=== PATIENT | male | born 1930 | race Caucasian/White ===

== ENCOUNTER 2016-12-31 22:08 | Inpatient (IN) | payer MEDICARE ==
[~2016-12-31] VITALS: Ht 180.3 cm; Wt 98.2 kg
[2016-12-31] MEDS ORDERED: ONDANSETRON 2MG/ML, 2ML ONE (22:51)
[2016-12-31] MEDS ORDERED: ONDANSETRON 2MG/ML, 2ML IVPush ONE (23:00)
[2016-12-31] MEDS ORDERED: SODIUM CHLORIDE 0.9% 1,000ML IVBOLUS ONE (23:00)
[2016-12-31 23:11] LABS: HEMATOCRIT 45.7 % (39.2-51.8); HEMOGLOBIN 15.7 g/dL (13.7-18.0)
[2016-12-31 23:22] LABS: ASPARTATE AMINO TRANSFERASE 45 U/L (15-37); BLOOD UREA NITROGEN 24 mg/dL (7-18)
[2016-12-31 23:33] LABS: IS PT STATUS REG ER OR PRE ER? YES
[2017-01-01] MEDS ORDERED: ASPIRIN 81 MG TABLET CHEW PO ONE
[2017-01-01] MEDS ORDERED: NITROGLYCERIN 0.4 MG/SPRAY SL PRN (00:30)
[2017-01-01] MEDS ORDERED: HYDROmorphone 2 MG/ML, 1ML IVPush PRN (00:30)
[2017-01-01] MEDS ORDERED: ACETAMINOPHEN 325 MG TABLET PO PRN (00:30)
[2017-01-01] MEDS ORDERED: hydrALAzine 20 MG/ML, 1ML IVPush PRN (00:30)
[2017-01-01] MEDS ORDERED: ASPIRIN 325 MG TABLET EC PO ONE (00:30)
[2017-01-01] MEDS ORDERED: MORPHINE SULFATE 4 MG/ML, 1ML IVPush PRN (00:30)
[2017-01-01] MEDS ORDERED: Enoxaparin 1 mg/kg protocol SQ SCH (00:30)
[2017-01-01] MEDS ORDERED: ONDANSETRON 2MG/ML, 2ML IVPush PRN ×2 (00:30)
[2017-01-01] MEDS ORDERED: NITROGLYCERIN 0.4 MG BOTTLE (25 TABS) SL PRN (00:30)
[2017-01-01] MEDS ORDERED: ASPIRIN 81 MG TABLET CHEW ONE (00:48)
[2017-01-01] MEDS ORDERED: ENOXAPARIN 100 MG/ML SQ ONE (01:00)
[2017-01-01 01:14] LABS: IS PT STATUS REG ER OR PRE ER? YES
[2017-01-01 01:55] VITALS: BP 105/57
[2017-01-01] MEDS ORDERED: HEPARIN 25,000 UNITS/500ML PMX 500 ML IV PRN ×2 (02:30→03:00)
[2017-01-01] MEDS ORDERED: HEPARIN 5,000 UNITS/ML, 1ML IV ONE (03:00)
[2017-01-01] MEDS ORDERED: HEPARIN 5,000 UNITS/ML, 1ML IV PRN (03:00)
[2017-01-01 03:40] LABS: IS PT STATUS REG ER OR PRE ER? NO
[2017-01-01] MEDS: INSULIN ASPART 100 UNITS/ML, PEN SQ-INSULIN SCH ×4 (07:00→20:36)
[2017-01-01 08:39] VITALS: BP 132/57
[2017-01-01] MEDS: METOPROLOL TARTRATE 25 MG TABLET PO SCH ×2 (09:00→18:00)
[2017-01-01] MEDS: FAMOTIDINE 20 MG/2 ML IVPush SCH ×2 (09:00→20:36)
[2017-01-01] MEDS: SODIUM CHLORIDE FLUSH 10ML SYR IVF SCH ×4 (09:00→20:37)
[2017-01-01 09:48] LABS: IS PT STATUS REG ER OR PRE ER? NO
[2017-01-01 13:20] VITALS: BP 131/69
[2017-01-01] MEDS ORDERED: LIDOCAINE 2%, 20ML ONE (14:27)
[2017-01-01] MEDS ORDERED: HEPARIN 1,000 UNITS/ML, 10ML ONE (14:27)
[2017-01-01] MEDS ORDERED: BIVALIRUDIN 250 MG ONE (14:27)
[2017-01-01] MEDS ORDERED: FENTANYL PF 100 MCG/2ML ONE (14:27)
[2017-01-01] MEDS ORDERED: MIDAZOLAM 1 MG/ML, 5ML ONE (14:27)
[2017-01-01] MEDS ORDERED: VERAPAMIL 2.5 MG/ML, 2ML ONE (14:27)
[2017-01-01] MEDS ORDERED: TICAGRELOR 90 MG TABLET ONE (14:27)
[2017-01-01] MEDS ORDERED: NITROGLYCERIN 5 MG/ML, 10ML ONE (15:04)
[2017-01-01 20:00] VITALS: BP 125/70
[2017-01-01] MEDS: ATORVASTATIN 40 MG TABLET PO SCH (20:36)
[2017-01-01] MEDS: TICAGRELOR 90 MG TABLET PO SCH (20:36)
[2017-01-02 01:34] VITALS: BP 99/56
[2017-01-02] MEDS: METOPROLOL TARTRATE 25 MG TABLET PO SCH ×2 (05:22→18:00)
[2017-01-02] MEDS ORDERED: ASPIRIN 325 MG TABLET EC PO SCH (06:00)
[2017-01-02 08:10] VITALS: BP 109/73
[2017-01-02] MEDS: ASPIRIN 81 MG TABLET EC PO SCH (08:17)
[2017-01-02] MEDS: TICAGRELOR 90 MG TABLET PO SCH ×2 (08:17→21:00)
[2017-01-02] MEDS: SODIUM CHLORIDE FLUSH 10ML SYR IVF SCH ×4 (08:18→22:30)
[2017-01-02] MEDS: FAMOTIDINE 20 MG/2 ML IVPush SCH ×2 (08:18→22:27)
[2017-01-02] MEDS: INSULIN ASPART 100 UNITS/ML, PEN SQ-INSULIN SCH ×4 (08:33→22:27)
[2017-01-02 11:16] LABS: BLOOD UREA NITROGEN 21 mg/dL (7-18)
[2017-01-02] MEDS ORDERED: LORazepam 2 MG/ML, 1ML IVPush PRN (13:00)
[2017-01-02] MEDS: LORazepam 2 MG/ML, 1ML IVPush PRN ×2 (14:35→22:24)
[2017-01-02] MEDS ORDERED: HALOPERIDOL 5 MG/ML ONE (17:22)
[2017-01-02] MEDS: HALOPERIDOL 5 MG/ML IM PRN (17:45)
[2017-01-02 18:18] LABS: ASPARTATE AMINO TRANSFERASE 66 U/L (15-37); BLOOD UREA NITROGEN 20 mg/dL (7-18)
[2017-01-02 20:22] VITALS: BP 165/71
[2017-01-02] MEDS: ATORVASTATIN 40 MG TABLET PO SCH (21:00)
[2017-01-03 02:03] VITALS: BP 157/70
[2017-01-03] MEDS: LORazepam 2 MG/ML, 1ML IVPush PRN ×2 (02:26→10:20)
[2017-01-03 05:38] VITALS: BP 166/75
[2017-01-03] MEDS: METOPROLOL TARTRATE 25 MG TABLET PO SCH ×2 (05:40→17:20)
[2017-01-03 07:27] LABS: HEMOGLOBIN 15.1 g/dL (13.7-18.0); WHITE BLOOD COUNT 8.2 x10^3/uL (3.4-10)
[2017-01-03 07:38] LABS: BLOOD UREA NITROGEN 18 mg/dL (7-18)
[2017-01-03 08:00] VITALS: BP 158/61
[2017-01-03] MEDS: SODIUM CHLORIDE FLUSH 10ML SYR IVF SCH ×3 (09:00→22:53)
[2017-01-03] MEDS: ASPIRIN 81 MG TABLET EC PO SCH ×2 (09:00→09:14)
[2017-01-03] MEDS: INSULIN ASPART 100 UNITS/ML, PEN SQ-INSULIN SCH ×4 (09:09→22:51)
[2017-01-03] MEDS: FAMOTIDINE 20 MG/2 ML IVPush SCH ×2 (09:09→22:52)
[2017-01-03] MEDS: TICAGRELOR 90 MG TABLET PO SCH ×3 (09:10→22:52)
[2017-01-03] MEDS: HALOPERIDOL 5 MG/ML IM PRN (09:13)
[2017-01-03 16:00] VITALS: BP 155/68
[2017-01-03] MEDS ORDERED: hydrALAzine 20 MG/ML, 1ML IVPush PRN (16:00)
[2017-01-03] MEDS ORDERED: HYDROmorphone 2 MG/ML, 1ML IVPush PRN (16:00)
[2017-01-03] MEDS ORDERED: NITROGLYCERIN 0.4 MG BOTTLE (25 TABS) SL PRN (16:00)
[2017-01-03] MEDS ORDERED: NITROGLYCERIN 0.4 MG/SPRAY SL PRN (16:00)
[2017-01-03] MEDS ORDERED: ONDANSETRON 2MG/ML, 2ML IVPush PRN (16:00)
[2017-01-03] MEDS ORDERED: ACETAMINOPHEN 325 MG TABLET PO PRN (16:00)
[2017-01-03] MEDS: PIPERACILLIN/TAZO/PMX 3.375GM 50 ML IV SCH ×2 (17:04→22:52)
[2017-01-03 17:09] VITALS: BP 155/78
[2017-01-03 20:05] VITALS: BP 148/75
[2017-01-03] MEDS ORDERED: SODIUM CHLORIDE FLUSH 10ML SYR IVF SCH (21:00)
[2017-01-03] MEDS: ATORVASTATIN 40 MG TABLET PO SCH (22:52)
[2017-01-04 00:57] VITALS: BP 144/74
[2017-01-04 02:00] VITALS: BP 127/80
[2017-01-04] MEDS: PIPERACILLIN/TAZO/PMX 3.375GM 50 ML IV SCH ×3 (03:14→18:39)
[2017-01-04] MEDS: METOPROLOL TARTRATE 25 MG TABLET PO SCH ×2 (06:02→18:39)
[2017-01-04 09:14] VITALS: BP 90/57
[2017-01-04] MEDS: FAMOTIDINE 20 MG/2 ML IVPush SCH ×2 (10:49→21:47)
[2017-01-04] MEDS: TICAGRELOR 90 MG TABLET PO SCH ×2 (10:49→21:47)
[2017-01-04] MEDS: ASPIRIN 81 MG TABLET EC PO SCH (10:49)
[2017-01-04] MEDS: INSULIN ASPART 100 UNITS/ML, PEN SQ-INSULIN SCH ×4 (10:50→21:51)
[2017-01-04] MEDS: SODIUM CHLORIDE FLUSH 10ML SYR IVF SCH ×2 (10:50→21:46)
[2017-01-04] MEDS ORDERED: NALOXONE 1 MG/ML, 2ML ONE (14:41)
[2017-01-04] MEDS ORDERED: FLUMAZENIL 0.1 MG/1 ML, 5ML ONE (14:41)
[2017-01-04] MEDS ORDERED: MIDAZOLAM 1 MG/ML, 5ML ONE ×2 (14:41)
[2017-01-04] MEDS ORDERED: FENTANYL PF 100 MCG/2ML ONE ×2 (14:41)
[2017-01-04 16:15] LABS: PATH.CAST-FLAG NOT PRESENT; SPERM-FLAG NOT PRESENT; SRC-FLAG NOT PRESENT; XTAL-FLAG NOT PRESENT; YLC-FLAG NOT PRESENT
[2017-01-04 16:35] VITALS: BP 129/74
[2017-01-04] MEDS ORDERED: GADOBUTROL 10 MMOL/10 ML PFS ONE (16:55)
[2017-01-04] MEDS ORDERED: POTA99TA3 PO (19:45)
[2017-01-04] MEDS ORDERED: ALBU90AE INH (19:45)
[2017-01-04] MEDS ORDERED: CYAN500T18 PO (19:45)
[2017-01-04] MEDS ORDERED: CHOL100011 PO (19:45)
[2017-01-04] MEDS ORDERED: OMEP-110 PO (19:45)
[2017-01-04] MEDS ORDERED: FURO20TA3 PO (19:45)
[2017-01-04] MEDS ORDERED: MAGN420T PO (19:45)
[2017-01-04] MEDS ORDERED: ACET-1600 PO (19:45)
[2017-01-04] MEDS ORDERED: TIMO1DRO2 EACHEYE (19:45)
[2017-01-04] MEDS ORDERED: GABA400C PO (19:45)
[2017-01-04] MEDS ORDERED: INSU100V5 SQ-INSULIN ×3 (19:45)
[2017-01-04] MEDS ORDERED: MULT-204 PO (19:45)
[2017-01-04] MEDS ORDERED: FLUT50DI NS (19:45)
[2017-01-04] MEDS ORDERED: LOPE2CAP PO (19:45)
[2017-01-04] MEDS ORDERED: ATOR10TA9 PO (19:45)
[2017-01-04] MEDS ORDERED: AMOX-291 PO (19:45)
[2017-01-04] MEDS ORDERED: INSU100V8 SQ ×2 (19:45)
[2017-01-04] MEDS ORDERED: WARF5TAB7 PO (19:45)
[2017-01-04] MEDS ORDERED: LISI2.5T PO (19:45)
[2017-01-04] MEDS ORDERED: CARB1DRO8 EACHEYE (19:45)
[2017-01-04] MEDS ORDERED: LATA2.5D3 EACHEYE (19:45)
[2017-01-04 20:00] VITALS: BP 147/78
[2017-01-04] MEDS: ATORVASTATIN 40 MG TABLET PO SCH (21:47)
[2017-01-05 02:20] VITALS: BP 160/82
[2017-01-05] MEDS: PIPERACILLIN/TAZO/PMX 3.375GM 50 ML IV SCH (03:20)
[2017-01-05] MEDS: METOPROLOL TARTRATE 25 MG TABLET PO SCH (05:52)
[2017-01-05] MEDS: INSULIN ASPART 100 UNITS/ML, PEN SQ-INSULIN SCH ×5 (07:00→20:47)
[2017-01-05 07:22] VITALS: BP 160/84
[2017-01-05 08:33] LABS: HEMATOCRIT 44.7 % (39.2-51.8); HEMOGLOBIN 15.2 g/dL (13.7-18.0); WHITE BLOOD COUNT 8.8 x10^3/uL (3.4-10)
[2017-01-05 08:41] LABS: BLOOD UREA NITROGEN 30 mg/dL (7-18)
[2017-01-05] MEDS: FAMOTIDINE 20 MG/2 ML IVPush SCH ×2 (09:47→20:46)
[2017-01-05] MEDS: SODIUM CHLORIDE FLUSH 10ML SYR IVF SCH ×2 (09:47→20:47)
[2017-01-05] MEDS: ENOXAPARIN 40 MG/0.4 ML SQ SCH (09:47)
[2017-01-05] MEDS: TICAGRELOR 90 MG TABLET PO SCH ×2 (09:47→20:46)
[2017-01-05] MEDS: ASPIRIN 81 MG TABLET EC PO SCH (09:47)
[2017-01-05] MEDS ORDERED: MAGNESIUM SULFATE PMX 2GM/50ML 50 ML IV ONE (10:30)
[2017-01-05] MEDS: POTASSIUM CHLORIDE 20 MEQ PACKET PO SCH ×2 (13:08→18:06)
[2017-01-05] MEDS: INSULIN DETEMIR 100 UNITS/ML, PEN SQ-INSULIN SCH ×2 (13:11→20:47)
[2017-01-05] MEDS: METOPROLOL TARTRATE 50 MG TABLET PO SCH (18:06)
[2017-01-05 19:16] VITALS: BP 126/67
[2017-01-05] MEDS: ATORVASTATIN 40 MG TABLET PO SCH (20:46)
[2017-01-06 01:28] VITALS: BP 167/65
[2017-01-06] MEDS: METOPROLOL TARTRATE 50 MG TABLET PO SCH ×3 (06:00→16:53)
[2017-01-06 06:12] LABS: BLOOD UREA NITROGEN 25 mg/dL (7-18)
[2017-01-06] MEDS: ENOXAPARIN 40 MG/0.4 ML SQ SCH (08:10)
[2017-01-06] MEDS: ASPIRIN 81 MG TABLET EC PO SCH (08:10)
[2017-01-06] MEDS: FAMOTIDINE 20 MG/2 ML IVPush SCH ×2 (08:10→22:15)
[2017-01-06] MEDS: TICAGRELOR 90 MG TABLET PO SCH ×2 (08:10→22:15)
[2017-01-06] MEDS: INSULIN ASPART 100 UNITS/ML, PEN SQ-INSULIN SCH ×4 (08:13→22:16)
[2017-01-06] MEDS: INSULIN DETEMIR 100 UNITS/ML, PEN SQ-INSULIN SCH ×2 (08:14→22:18)
[2017-01-06] MEDS: POTASSIUM CHLORIDE 20 MEQ TAB.ER.PRT PO SCH ×2 (08:20→16:53)
[2017-01-06] MEDS: SODIUM CHLORIDE FLUSH 10ML SYR IVF SCH ×2 (08:28→22:15)
[2017-01-06 09:00] VITALS: BP 156/76
[2017-01-06 13:17] VITALS: BP 157/70
[2017-01-06 19:37] VITALS: BP 148/72
[2017-01-06] MEDS: ATORVASTATIN 40 MG TABLET PO SCH (22:15)
[2017-01-07 02:49] VITALS: BP 117/53
[2017-01-07 06:23] VITALS: BP 123/69
[2017-01-07] MEDS: METOPROLOL TARTRATE 50 MG TABLET PO SCH ×2 (06:27→17:44)
[2017-01-07] MEDS: INSULIN ASPART 100 UNITS/ML, PEN SQ-INSULIN SCH ×4 (07:00→21:29)
[2017-01-07] MEDS: INSULIN DETEMIR 100 UNITS/ML, PEN SQ-INSULIN SCH ×2 (07:29→21:29)
[2017-01-07] MEDS: FAMOTIDINE 20 MG/2 ML IVPush SCH ×2 (07:30→21:26)
[2017-01-07] MEDS: TICAGRELOR 90 MG TABLET PO SCH ×2 (07:30→21:27)
[2017-01-07] MEDS: POTASSIUM CHLORIDE 20 MEQ TAB.ER.PRT PO SCH ×2 (07:30→17:44)
[2017-01-07] MEDS: ASPIRIN 81 MG TABLET EC PO SCH (07:30)
[2017-01-07 07:31] VITALS: BP 116/75
[2017-01-07] MEDS: ENOXAPARIN 40 MG/0.4 ML SQ SCH (07:31)
[2017-01-07] MEDS: SODIUM CHLORIDE FLUSH 10ML SYR IVF SCH ×2 (07:31→21:26)
[2017-01-07] MEDS: QUETIAPINE 25MG TABLET PO SCH ×2 (12:00→21:27)
[2017-01-07 14:55] VITALS: BP 162/75
[2017-01-07 18:54] VITALS: BP 120/70
[2017-01-07] MEDS: ATORVASTATIN 40 MG TABLET PO SCH (21:27)
[2017-01-08 00:50] VITALS: BP 119/70
[2017-01-08] MEDS: METOPROLOL TARTRATE 50 MG TABLET PO SCH ×2 (05:09→17:33)
[2017-01-08 07:43] VITALS: BP 114/72
[2017-01-08] MEDS: TICAGRELOR 90 MG TABLET PO SCH ×2 (08:56→21:00)
[2017-01-08] MEDS: POTASSIUM CHLORIDE 20 MEQ TAB.ER.PRT PO SCH ×2 (08:56→17:33)
[2017-01-08] MEDS: ASPIRIN 81 MG TABLET EC PO SCH (08:56)
[2017-01-08] MEDS: ENOXAPARIN 40 MG/0.4 ML SQ SCH (08:56)
[2017-01-08] MEDS: FAMOTIDINE 20 MG/2 ML IVPush SCH ×2 (08:56→22:06)
[2017-01-08] MEDS: INSULIN DETEMIR 100 UNITS/ML, PEN SQ-INSULIN SCH ×2 (08:57→22:06)
[2017-01-08] MEDS: INSULIN ASPART 100 UNITS/ML, PEN SQ-INSULIN SCH ×4 (08:57→22:06)
[2017-01-08] MEDS: QUETIAPINE 25MG TABLET PO SCH (08:57)
[2017-01-08] MEDS: SODIUM CHLORIDE FLUSH 10ML SYR IVF SCH ×2 (08:58→22:07)
[2017-01-08 13:26] VITALS: BP 121/64
[2017-01-08 14:51] LABS: ABG COLLECTION SITE RIGHT BRACHIAL
[2017-01-08 14:53] LABS: HEMATOCRIT 47.3 % (39.2-51.8); HEMOGLOBIN 15.5 g/dL (13.7-18.0); WHITE BLOOD COUNT 9.5 x10^3/uL (3.4-10)
[2017-01-08 15:04] LABS: ASPARTATE AMINO TRANSFERASE 37 U/L (15-37); BLOOD UREA NITROGEN 31 mg/dL (7-18)
[2017-01-08 19:37] VITALS: BP 118/66
[2017-01-08] MEDS: ATORVASTATIN 40 MG TABLET PO SCH (21:00)
[2017-01-09 00:49] VITALS: BP 119/57
[2017-01-09] MEDS: METOPROLOL TARTRATE 50 MG TABLET PO SCH ×2 (05:22→17:18)
[2017-01-09] MEDS: POTASSIUM CHLORIDE 20 MEQ TAB.ER.PRT PO SCH ×2 (08:10→17:00)
[2017-01-09] MEDS: INSULIN DETEMIR 100 UNITS/ML, PEN SQ-INSULIN SCH (08:10)
[2017-01-09] MEDS: TICAGRELOR 90 MG TABLET PO SCH (08:10)
[2017-01-09] MEDS: INSULIN ASPART 100 UNITS/ML, PEN SQ-INSULIN SCH ×3 (08:10→17:45)
[2017-01-09] MEDS: ENOXAPARIN 40 MG/0.4 ML SQ SCH (08:11)
[2017-01-09] MEDS: ASPIRIN 81 MG TABLET EC PO SCH (08:11)
[2017-01-09] MEDS: SODIUM CHLORIDE FLUSH 10ML SYR IVF SCH (08:11)
[2017-01-09] MEDS: FAMOTIDINE 20 MG/2 ML IVPush SCH (08:11)
[2017-01-09 08:20] VITALS: BP 153/73
[2017-01-09 14:00] VITALS: BP 135/68
[2017-01-09] MEDS ORDERED: NITR12SP2 SL (16:06)
[2017-01-09] MEDS ORDERED: ASPI-621 PO (16:06)
[2017-01-09] MEDS ORDERED: NITR0.4T SL (16:06)
[2017-01-09] MEDS ORDERED: ENOX40SY4 SQ (16:06)
[2017-01-09] MEDS ORDERED: INSU100I18 SQ-INSULIN (16:06)
[2017-01-09] MEDS ORDERED: INSU100I28 SQ-INSULIN (16:06)
[2017-01-09] MEDS ORDERED: ATOR40TA78 PO (16:06)
[2017-01-09] MEDS ORDERED: METO50TA82 PO (16:06)
[2017-01-09] MEDS ORDERED: ACET325T14 PO (16:06)
[2017-01-09] MEDS ORDERED: TICA90TA PO (16:06)
== END 2017-01-09 18:31 | DRG 246 ==
LOC: ED 01-01 00:43 → EDIP 01-01 00:45 → 5SO 01-01 02:08 → 4WST 01-07 15:22
PROVIDERS: ADMIT Internal Medicine; ATTEND Internal Medicine
PROC: 4A023N7 Measurement of Cardiac Sampling and Pressure, Left Heart, Percutaneous Approach (ICD-10-PCS; principal; 2017-01-01)
PROC: 027034Z Dilation of Coronary Artery, One Artery with Drug-eluting Intraluminal Device, Percutaneous Approach (ICD-10-PCS; 2017-01-01)
PROC: B2111ZZ Fluoroscopy of Multiple Coronary Arteries using Low Osmolar Contrast (ICD-10-PCS; 2017-01-01)
PROC: B215YZZ Fluoroscopy of Left Heart using Other Contrast (ICD-10-PCS; 2017-01-01)
PROC: 4A033BC Measurement of Arterial Pressure, Coronary, Percutaneous Approach (ICD-10-PCS; 2017-01-01)
DX: I21.4 Non-ST elevation (NSTEMI) myocardial infarction (principal); G93.40 Encephalopathy, unspecified; I63.9 Cerebral infarction, unspecified; J69.0 Pneumonitis due to inhalation of food and vomit; N17.0 Acute kidney failure with tubular necrosis; I47.2 Ventricular tachycardia; G81.94 Hemiplegia, unspecified affecting left nondominant side; W18.30XA Fall on same level, unspecified, initial encounter; E11.42 Type 2 diabetes mellitus with diabetic polyneuropathy; E11.51 Type 2 diabetes mellitus with diabetic peripheral angiopathy without gangrene; Z79.4 Long term (current) use of insulin; E78.5 Hyperlipidemia, unspecified; E87.6 Hypokalemia; F22 Delusional disorders; F41.9 Anxiety disorder, unspecified; H54.8 Legal blindness, as defined in USA; H91.90 Unspecified hearing loss, unspecified ear; I25.10 Atherosclerotic heart disease of native coronary artery without angina pectoris; I65.21 Occlusion and stenosis of right carotid artery; Y92.009 Unspecified place in unspecified non-institutional (private) residence as the place of occurrence of the external cause; Z78.1 Physical restraint status; Z82.49 Family history of ischemic heart disease and other diseases of the circulatory system; Z87.891 Personal history of nicotine dependence; Z90.49 Acquired absence of other specified parts of digestive tract; Z95.5 Presence of coronary angioplasty implant and graft; Z83.3 Family history of diabetes mellitus; R91.8 Other nonspecific abnormal finding of lung field
CPT/HCPCS: 36415; 36600; 70450; 70553; 71010; 80048; 80053; 80061; 81001; 82140; 82803; 82962; 83036; 83735; 84145; 84484; 85025; 85520; 87040; 87324; 93005; 93306; 93458; 93571; 93880; 99156; 99157; A9585; C1769; C1894; C9600; J0583; J1644; J1650; J1815; J2250; J2405; J2543; J3010; J3490; C1725; C1874; C1887; J1630; J2060; J2310; J3475; J7030; Q9967; S0028